=== PATIENT | female | born 1985 | race Hispanic/Latino ===

== ENCOUNTER 2019-03-09 07:35 | Inpatient (IN) ==
[2019-03-09] MEDS ORDERED: PEPCID IV PRN (07:50)
[2019-03-09] MEDS ORDERED: AMPICILLIN 2 GM/NS 2 GM/100 ML IVPB IV ONE (07:50)
[2019-03-09] MEDS ORDERED: PEPCID PO ONE (07:50)
[2019-03-09] MEDS ORDERED: TYLENOL PO PRN (07:50)
[2019-03-09] MEDS ORDERED: REGLAN PO ONE (07:50)
[2019-03-09] MEDS ORDERED: ZOFRAN IV PRN (07:50)
[2019-03-09] MEDS ORDERED: KEFZOL 1 GM/D5W 1 GM/50 ML IVPB IV PRN (07:50)
[2019-03-09] MEDS ORDERED: PEPCID PO PRN (07:50)
[2019-03-09] MEDS ORDERED: STADOL IV PRN (07:50)
[2019-03-09] MEDS ORDERED: MINERAL OIL ONE (07:54)
[2019-03-09] MEDS ORDERED: XYLOCAINE-MPF 1% INJ ONE (07:54)
[2019-03-09] MEDS ORDERED: XYLOCAINE-MPF 1% 10 ML ONE (07:57)
[2019-03-09] MEDS ORDERED: PITOCIN 30 UNITS/NS 30 UNIT/500 ML IV.SOLN IV SCH (08:00)
[2019-03-09] MEDS ORDERED: SODIUM CHLORIDE 0.9% INJ SCH (08:00)
[2019-03-09] MEDS ORDERED: LR 1,000 ML IV SCH (08:00)
[2019-03-09] MEDS: PITOCIN 30 UNITS/NS 30 UNIT/500 ML IV.SOLN IV SCH ×2 (08:07→14:06)
[2019-03-09] MEDS ORDERED: BENADRYL IV PRN (08:33)
[2019-03-09] MEDS ORDERED: PERI MEDS (DERMOPLAST/NUPERCAINAL/TUCKS) MISC PRN (08:33)
[2019-03-09] MEDS ORDERED: PITOCIN IM PRN (08:33)
[2019-03-09] MEDS ORDERED: CYTOTEC PO PRN (08:33)
[2019-03-09] MEDS ORDERED: HYDROXYZINE IM PRN (08:33)
[2019-03-09] MEDS ORDERED: AMBIEN PO PRN (08:33)
[2019-03-09] MEDS ORDERED: XYLOCAINE-MPF 1% INJ PRN (08:33)
[2019-03-09] MEDS ORDERED: NORCO-5 PO PRN (08:33)
[2019-03-09] MEDS ORDERED: MINERAL OIL PO PRN (08:33)
[2019-03-09] MEDS ORDERED: BOOSTRIX VACCINE IM ONE (08:33)
[2019-03-09] MEDS ORDERED: BENADRYL PO PRN (08:33)
[2019-03-09] MEDS ORDERED: M-M-R II VACCINE SUBQ ONE (08:33)
[2019-03-09] MEDS ORDERED: ATARAX PO PRN (08:33)
[2019-03-09] MEDS ORDERED: NORCO-10 PO PRN (08:33)
[2019-03-09 08:40] LABS: BASO# 0.04 X1000 (0.0-0.2); BASO% 0.4 % (0.0-0.8); EOS# 0.03 X1000 (0.0-0.7); EOS% 0.3 % (0.0-10.0); HEMOGLOBIN 10.2 g/dL (12.0-16.0); IMM GRAN# 0.03 X1000 (0.0-0.04); IMM GRAN% 0.3 % (0.0-0.5); LYMPH# 3.46 X1000 (1.2-3.4); LYMPH% 31.5 % (20.5-51.1); MCH 22.9 PG (27-31); MCHC 30.9 g/dL (33-37); MONO# 0.65 X1000 (0.11-0.59); MONO% 5.9 % (1.7-9.3); MPV 12.8 FL (7.4-10.4); NEUT# 6.78 X1000 (1.4-6.5); NEUT% 61.6 % (42.2-75.2); PLT 214 X1000 (130-400); RBC 4.46 XMIL (4.2-5.4); WBC 10.99 X1000 (4.8-10.8)
[2019-03-09] MEDS ORDERED: PITOCIN 20 UNITS/NS 20 UNITS/1,000 ML IV.SOLN IV SCH (08:45)
[2019-03-09 09:15] LABS: RAPID HIV PRESUMPTIVE NEGATIVE; RPR NON-REACTIVE (NONREACTIVE)
[2019-03-09] MEDS: MOTRIN PO PRN (10:15)
--- NOTE | 2019-03-09 10:24 | HISTORY AND PHYSICAL ---
HISTORY OF PRESENT ILLNESS: The patient is a 33-year-old, Faroese female, G2, P1, with no care, who presents to the emergency room with complaints of uterine contractions. The patient denies any rupture of membranes nor vaginal bleeding. PAST MEDICAL HISTORY: Unremarkable. PAST SURGICAL HISTORY: None. PAST OBSTETRICAL HISTORY: G2, P1, spontaneous vaginal delivery x1. GYNECOLOGIC HISTORY: Unknown. FAMILY HISTORY: Unknown. SOCIAL HISTORY: Tobacco use, none. Alcohol use, none. MEDICATIONS: None. ALLERGIES: No known drug allergies. PHYSICAL EXAMINATION: VITAL SIGNS: Height 5 feet 10 inches, weight estimated at 130 pounds. Temperature 96.6 degrees, blood pressure 135/79, pulse of 93, respirations 20. heart rate in the 120s with early decelerations noted. HEENT: Pupils equal, round, reactive to light accommodation. Extraocular movements intact. Oropharynx clear. NECK: Supple. No thyromegaly. LUNGS: Clear to auscultation. HEART: Regular rate and rhythm. ABDOMEN: Gravid. Patient with uterine contractions during examination. PELVIC: Cervix was completely dilated, 100% effaced and 0 station with a bulging bag. Vertex presentation was confirmed. EXTREMITIES: No clubbing, cyanosis, or edema noted. NEUROLOGIC: Cranial nerves 2-12 grossly intact. Motor 5/5. DTRs 2+ bilaterally. ASSESSMENT AND PLAN: A 33-year-old Faroese female of [facility] dialect with limited or no care, presents in active labor at term gestation. The patient will be admitted. Obtain lab panel. Start group B strep prophylaxis due to unknown status and anticipate vaginal delivery. cc: Arron Jaimes III, MD
[2019-03-09] MEDS ORDERED: AMPICILLIN 1 GM/NS 1 GM/50 ML IVPB IV SCH (11:52)
[2019-03-09 11:53] LABS: ANISOCYTOSIS 1+; LYMPHS 32 % (21-51); MICROCYTOSIS 2+; MONO 5 % (1-9); SEGS 63 % (42-75)
[2019-03-09 12:05] LABS: URINE SOURCE VOIDED
[2019-03-09 12:28] LABS: UR AMPHETAMINES QUAL NONE DETECTED (NONE DETECT); UR BARBITUATES QUAL NONE DETECTED (NONE DETECT); UR BENZODIAZEPIN QUAL NONE DETECTED (NONE DETECT); UR CANNABINOIDS QUAL NONE DETECTED (NONE DETECT); UR COCAINE QUAL NONE DETECTED (NONE DETECT); UR METHADONE QUAL NONE DETECTED (NONE DETECT); UR METHAMPHETAMINE QUAL NONE DETECTED (NONE DETECT); UR OPIATES QUAL NONE DETECTED (NONE DETECT); UR OXYCODONE QUAL NONE DETECTED (NONE DETECT); UR PCP QUAL NONE DETECTED (NONE DETECT); UR PROPOXYPHENE QUAL NONE DETECTED (NONE DETECT); UR TCA QUAL NONE DETECTED (NONE DETECT)
[2019-03-09 12:31] LABS: BILIRUBIN URINE NEGATIVE (NEGATIVE); BLOOD URINE 4+ (NEGATIVE); GLUCOSE URINE NEGATIVE (NEGATIVE); KETONE URINE NEGATIVE (NEGATIVE); NITRITE URINE NEGATIVE (NEGATIVE); PROTEIN URINE TRACE mg/dL (NEGATIVE); SP GRAVITY URINE 1.005; UROBILINOGEN URINE NORMAL
[2019-03-09 12:32] LABS: CLARITY VERY CLOUDY (CLEAR); COLOR RED; LEUKOCYTES URINE TRACE (NEGATIVE)
--- NOTE | 2019-03-09 13:07 | OPERATIVE NOTE ---
PROCEDURE DATE: 03/09/2019 The patient progressed to complete and pushing, and had a spontaneous vaginal delivery of a male infant, 6 pounds 12 ounces with Apgars of 9 and 10 at 0805 on 03/09/2019 over a second-degree midline episiotomy. A nuchal cord x2 was reduced over the perineum easily. The cord blood sample was obtained at this time. Placenta was then delivered intact with 3 vessel cord. Second-degree midline episiotomy repaired with 2-0 and 3-0 chromic. ESTIMATED BLOOD LOSS: 150 mL. ANESTHESIA: 9 mL of 1% lidocaine. All counts were correct x2. cc: Arron Jaimes III, MD
[2019-03-09 15:10] LABS: RUBELLA SCREEN IMMUNE (IMMUNE)
[2019-03-09 17:55] LABS: HIV ANTIBODY SCREEN SEE COMMENTS
[2019-03-10] MEDS: PERICOLACE PO SCH ×2 (01:31→20:57)
[2019-03-10] MEDS: MOTRIN PO PRN ×3 (01:31→20:57)
[2019-03-10 06:54] LABS: BASO# 0.02 X1000 (0.0-0.2); BASO% 0.2 % (0.0-0.8); EOS# 0.04 X1000 (0.0-0.7); EOS% 0.3 % (0.0-10.0); HEMATOCRIT 28.6 % (37.0-47.0); HEMOGLOBIN 8.6 g/dL (12.0-16.0); IMM GRAN# 0.04 X1000 (0.0-0.04); IMM GRAN% 0.3 % (0.0-0.5); LYMPH# 3.34 X1000 (1.2-3.4); MCH 22.5 PG (27-31); MCHC 30.1 g/dL (33-37); MCV 74.7 FL (81-99); MONO# 0.68 X1000 (0.11-0.59); MONO% 5.5 % (1.7-9.3); MPV 12.5 FL (7.4-10.4); NEUT# 8.25 X1000 (1.4-6.5); NEUT% 66.7 % (42.2-75.2); PLT 186 X1000 (130-400); RBC 3.83 XMIL (4.2-5.4); RDW 17.9 % (11.5-14.5); WBC 12.37 X1000 (4.8-10.8)
[2019-03-10] MEDS ORDERED: NORCO-5 PO PRN ×2 (07:33→07:58)
--- NOTE | 2019-03-10 07:38 | OB/GYN PROGRESS NOTE ---
Progress Note OB - . Patient Problems: Current Active Problems Problem Status Onset Normal vaginal delivery Acute Non-Cuban speaking patient Acute Has ancestry Acute No care in current Acute OB Progress Note: Vital Signs - 24 hr 03/09/19 07:53 03/09/19 08:20 03/09/19 11:10 Temperature 96.6 F L 96.5 F L Pulse Rate 93 H 64 54 L Respiratory Rate 22 18 18 Blood Pressure 135/79 123/69 129/59 O2 Sat by Pulse Oximetry 100 100 98 03/09/19 15:25 03/09/19 20:37 03/10/19 01:31 Temperature 97.2 F L 98.1 F 97.9 F Pulse Rate 50 L 55 L 59 L Respiratory Rate 18 16 16 Blood Pressure 93/55 118/61 102/54 O2 Sat by Pulse Oximetry 98 99 98 03/10/19 07:30 Temperature 96.6 F L Pulse Rate 53 L Respiratory Rate 14 Blood Pressure 125/78 O2 Sat by Pulse Oximetry 100 Laboratory Results - last 24 hr 03/09/19 03/09/19 03/09/19 06:25 07:50 07:50 WBC 10.99 H RBC 4.46 Hgb 10.2 L Hct 33.0 L MCV 74.0 L MCH 22.9 L MCHC 30.9 L RDW Std Deviation 18.0 H Plt Count 214 MPV 12.8 H Immature Gran % (Auto) 0.3 Neut % (Auto) 61.6 Lymph % (Auto) 31.5 [place] % (Auto) 5.9 Eos % (Auto) 0.3 Baso % (Auto) 0.4 Immature Gran # (Auto) 0.03 Neut # (Auto) 6.78 H Lymph # (Auto) 3.46 H [place] # (Auto) 0.65 H Eos # (Auto) 0.03 Baso # (Auto) 0.04 Corrected WBC (Man) Segmented Neutrophils 63 Lymphocytes 32 Monocytes 5 Anisocytosis 1+ Microcytosis 2+ Glucose Urine Source VOIDED Urine Color RED Urine Clarity VERY CLOUDY A Urine pH 7.0 Ur Specific [place] 1.005 Urine Protein TRACE A Urine Ketones NEGATIVE Urine Blood 4+ Urine Nitrite NEGATIVE Urine Bilirubin NEGATIVE Urine Urobilinogen NORMAL Urine WBC TRACE A Urine Glucose NEGATIVE Urine Opiates Screen Ur Oxycodone Screen Urine Methadone Screen U Propoxyphene Qual Ur Barbituates Screen Ur Tricyclics Screen Ur Phencyclidine Scrn Ur Amphetamines Screen U Methamphetamines Scrn U Benzodiazepines Scrn Urine Cocaine Screen U Cannabinoids Screen RPR HIV 1&2 Antibody Screen HIV 1&2 Antibody Rapid Rubella Immunity Screen Blood Type O POSITIVE Antibody Screen NEGATIVE 03/09/19 03/09/19 03/09/19 07:50 07:50 07:50 WBC Cancelled RBC Cancelled Hgb Cancelled Hct Cancelled MCV Cancelled MCH Cancelled MCHC Cancelled RDW Std Deviation Cancelled Plt Count Cancelled MPV Cancelled Immature Gran % (Auto) Cancelled Neut % (Auto) Cancelled Lymph % (Auto) Cancelled [place] % (Auto) Cancelled Eos % (Auto) Cancelled Baso % (Auto) Cancelled Immature Gran # (Auto) Cancelled Neut # (Auto) Cancelled Lymph # (Auto) Cancelled [place] # (Auto) Cancelled Eos # (Auto) Cancelled Baso # (Auto) Cancelled Corrected WBC (Man) Cancelled Segmented Neutrophils Lymphocytes Monocytes Anisocytosis Microcytosis Glucose 100 Urine Source Urine Color Urine Clarity Urine pH Ur Specific [place] Urine Protein Urine Ketones Urine Blood Urine Nitrite Urine Bilirubin Urine Urobilinogen Urine WBC Urine Glucose Urine Opiates Screen Ur Oxycodone Screen Urine Methadone Screen U Propoxyphene Qual Ur Barbituates Screen Ur Tricyclics Screen Ur Phencyclidine Scrn Ur Amphetamines Screen U Methamphetamines Scrn U Benzodiazepines Scrn Urine Cocaine Screen U Cannabinoids Screen RPR NON-REACTIVE HIV 1&2 Antibody Screen HIV 1&2 Antibody Rapid PRESUMPTIVE NEGATIVE Rubella Immunity Screen IMMUNE Blood Type Antibody Screen 03/09/19 03/09/19 03/10/19 09:15 11:00 06:19 WBC 12.37 H RBC 3.83 L Hgb 8.6 L D Hct 28.6 L MCV 74.7 L MCH 22.5 L MCHC 30.1 L RDW Std Deviation 17.9 H Plt Count 186 MPV 12.5 H Immature Gran % (Auto) 0.3 Neut % (Auto) 66.7 Lymph % (Auto) 27.0 [place] % (Auto) 5.5 Eos % (Auto) 0.3 Baso % (Auto) 0.2 Immature Gran # (Auto) 0.04 Neut # (Auto) 8.25 H Lymph # (Auto) 3.34 [place] # (Auto) 0.68 H Eos # (Auto) 0.04 Baso # (Auto) 0.02 Corrected WBC (Man) Segmented Neutrophils Lymphocytes Monocytes Anisocytosis Microcytosis Glucose Urine Source Urine Color Urine Clarity Urine pH Ur Specific [place] Urine Protein Urine Ketones Urine Blood Urine Nitrite Urine Bilirubin Urine Urobilinogen Urine WBC Urine Glucose Urine Opiates Screen NONE DETECTED Ur Oxycodone Screen NONE DETECTED Urine Methadone Screen NONE DETECTED U Propoxyphene Qual NONE DETECTED Ur Barbituates Screen NONE DETECTED Ur Tricyclics Screen NONE DETECTED Ur Phencyclidine Scrn NONE DETECTED Ur Amphetamines Screen NONE DETECTED U Methamphetamines Scrn NONE DETECTED U Benzodiazepines Scrn NONE DETECTED Urine Cocaine Screen NONE DETECTED U Cannabinoids Screen NONE DETECTED RPR HIV 1&2 Antibody Screen SEE COMMENTS HIV 1&2 Antibody Rapid Rubella Immunity Screen Blood Type Antibody Screen S: Patient without complaints. Denied fever, N/V, or chest pain. (Note: Kasaint elizabeth [place] [employer] operator unable to be obtained, therefore subjective report limited) O: Gen: NAD CV: RRR Pulm: CTAB; no rhonchi, wheezing, or rales Abd: soft, non TTP, non-distended; fundus firm and below umbilicus Ext: no LE TTP Labs: reviewed A&P: 33yo s/p , term, 1. PPD#1 -No concerns -Anticipate D/C home tomorrow 2. No care -SW consultation ordered 3. Anemia -Fe and Vit C ordered
[2019-03-10 08:36] LABS: HEPATITIS B SURFACE ANTIGEN SEE COMMENTS
[2019-03-10] MEDS: FERROUS SULFATE PO SCH ×2 (08:42→17:51)
[2019-03-10] MEDS: VITAMIN C PO SCH ×2 (08:42→17:51)
[2019-03-10] MEDS: PRECARE PO SCH (08:43)
[2019-03-11] MEDS: MOTRIN PO PRN (07:07)
[2019-03-11 07:39] VITALS: BP 104/54
[2019-03-11] MEDS: PRECARE PO SCH (08:22)
[2019-03-11] MEDS: VITAMIN C PO SCH (08:23)
[2019-03-11] MEDS: FERROUS SULFATE PO SCH (08:23)
--- NOTE | 2019-03-11 21:58 | DISCHARGE SUMMARY ---
ADMISSION DATE: 03/09/2019 DISCHARGE DATE: 03/11/2019 ADMISSION DIAGNOSIS: A 33-year-old [place]err[place] female of [place] dialect with limited or no care presents in active labor at term gestation. Patient noted to be complete upon presentation to Labor and Delivery. FINAL DIAGNOSIS: 1. A 33-year-old [place] female of [place] dialect with limited or no care presents in active labor at term gestation. Patient noted to be complete upon presentation to Labor and Delivery. 2. Spontaneous vaginal delivery of a male 6 pounds 12 ounces, Apgars 9 and 10 at 0805 on 03/09/2019. PROCEDURE: Spontaneous vaginal delivery. BRIEF HISTORY: The patient is a 33-year-old [place]serr[place] female, G2, P1, with no care, presents to the emergency room with complaints of uterine contractions. The patient denies any rupture of membranes or vaginal bleeding. PAST MEDICAL HISTORY: Unremarkable. PAST SURGICAL HISTORY: None. PAST OB HISTORY: G2, P1, spontaneous vaginal delivery x1. [facility] [employer] HISTORY: Unknown. FAMILY HISTORY: Unknown. SOCIAL HISTORY: Tobacco use none, alcohol use none. MEDICATIONS: None. ALLERGIES: No known drug allergies. PHYSICAL EXAMINATION: Height 4 feet 10, weight 130 pounds, temperature 96.6 degrees, blood pressure 135/79, pulse of 93, respirations 20. heart rate in the 120s with early decelerations noted. HEENT: Pupils equal, round, reactive to light, accommodation. Extraocular movements intact. Oropharynx clear. Neck: Supple. No thyromegaly. Lungs: Clear to auscultation. Heart: Regular rate and rhythm. Abdomen: Gravid. The patient with uterine contractions during examination. Pelvic: Cervix was dilated completely, 100% effaced, 0 station with a bulging bag. Vertex presentation was confirmed. Extremities: No clubbing, cyanosis, or edema noted. Neurologic: Cranial nerves 2-12 grossly intact. Motor 5/5. DTRs 2+ bilaterally. ASSESSMENT/PLAN: A 33-year-old [place] female of [place] dialect with limited or no care presents in active labor at term gestation. The patient be admitted. Plan group B strep prophylaxis due to unknown status and also obtain lab panel. HOSPITAL COURSE: The patient had spontaneous vaginal delivery of a male , 6 pounds 12 ounces, Apgars of 9 and 10 at 0805 on 03/09/2019 over second-degree midline episiotomy. She had stable vital signs, was afebrile. Her hemoglobin was 8.6 and hematocrit 28.6. Otherwise, patient did well with mild lochia. The patient on day #2 felt as though she could be discharged home. DISCHARGE INSTRUCTIONS: Patient to be discharged home. Follow up in 6 weeks for check. Patient instructed on pelvic rest for 6 weeks. The patient will be given prescriptions for [place] 5, Colace, Motrin, and iron sulfate. cc: Arron Jaimes III, MD
== END 2019-03-11 16:53 | disposition home or self-care (01) | DRG 807 ==
LOC: P.LD 07:35
PROVIDERS: ADMIT Obstetrics & Gynecology; ATTEND Obstetrics & Gynecology